=== PATIENT | female | born 1950 | race Caucasian/White ===

== ENCOUNTER 2023-08-19 05:29 | Emergency (ER) | payer MEDICARE, OTHER, SELFPAY ==
[2023-08-19 05:34] VITALS: BP 177/87; PULSE 110; RESP 18; TEMP 37.1; O2SAT 98; BMI 26.5
--- NOTE | 2023-08-19 05:44 | ED_ITS ---
HPI - General Adult General Chief complaint: Abdominal Pain Stated complaint: FLANK PAIN Time Seen by Provider: 08/19/23 05:32 Source: patient Mode of arrival: walk-in Limitations: no limitations History of Present Illness HPI narrative: 73-year-old female presents for a four to five-day history of intermittent pain in her right lower abdomen which goes into her back on the right side. No trauma. No dysuria or hematuria. She has a history of kidney stones. The pain had started in the abdomen rather that her back. It doesn't seem to radiate to her legs at all. Related Data Home Medications Medication Instructions Recorded Confirmed No Known Home Medications 08/19/23 08/19/23 Allergies Allergy/AdvReac Type Severity Reaction Status Date / Time No Known Drug Allergies Allergy Verified 08/19/23 05:42 Review of Systems ROS Narrative A ten point review of systems is negative except as noted above. Exam Narrative Exam Narrative: Nurses note and vital signs reviewed and patient is not hypoxic. General: The patient appears well and in no apparent distress. Patient is resting comfortably on cart. Skin: Warm, dry, no pallor noted. There is no rash noted. Head: Normocephalic, atraumatic Eye: Normal conjunctiva, no drainage Ears, Nose, Mouth, and Throat: oral mucosa is moist. Nares patent. Cardiovascular: Regular Rate and Rhythm Respiratory: Patient is in no distress, no accessory muscle use, lungs are clear to auscultation, no wheezing, rales or rhonchi Back: non-tender, no CVA tenderness bilaterally to percussion. no bruise or rash GI: nontender, nondistended. No tenderness in the right lower quadrant. Musculoskeletal: The patient has no evidence of calf tenderness, no pitting edema, symmetrical pulses noted bilaterally Neurological: A&O, normal speech Psychiatric: Cooperative Constitutional Vital Signs, click to edit/add: Last Vital Signs Temp 98.7 F 08/19/23 05:34 Pulse 110 H 08/19/23 05:34 Resp 18 08/19/23 05:34 BP 177/87 H 08/19/23 05:34 Pulse Ox 98 08/19/23 05:34 O2 Del Method Room Air 08/19/23 05:34 Course Vital Signs Vital signs: Vital Signs Temperature 98.7 F 08/19/23 05:34 Pulse Rate 110 H 08/19/23 05:34 Respiratory Rate 18 08/19/23 05:34 Blood Pressure 177/87 H 08/19/23 05:34 Pulse Oximetry 98 08/19/23 05:34 Oxygen Delivery Method Room Air 08/19/23 05:34 Temperature 98.7 F 08/19/23 05:34 Pulse Rate 110 H 08/19/23 05:34 Respiratory Rate 18 08/19/23 05:34 Blood Pressure 177/87 H 08/19/23 05:34 Pulse Oximetry 98 08/19/23 05:34 Oxygen Delivery Method Room Air 08/19/23 05:34 Medical Decision Making MDM Narrative Medical decision making narrative: Urinalysis is negative as is the blood work. CT scan is pending. Differential Diagnosis Differential Diagnosis: kidney stone, urinary tract infection, appendicitis, constipation Lab Data Lab results reviewed: Yes I reviewed the patient's lab results Labs: Lab Results 08/19/23 08/19/23 Range/Units 05:35 05:45 WBC 9.4 (4.0-11.0) 10^3/uL RBC 4.51 (4.20-5.40) 10^6/uL Hgb 13.8 (12.0-16.0) g/dL Hct 40.4 (36.0-48.0) % MCV 89.6 (81.0-99.0) fL MCH 30.6 (26.7-34.0) pg MCHC 34.2 (29.9-35.2) g/dL RDW 12.2 (11.0-15.0) % Plt Count 267 (150-450) 10^3/uL MPV 9.6 (9.5-13.5) fL Neut % (Auto) 73.3 (43.0-75.0) % Lymph % (Auto) 17.4 L (20.5-60.0) % [place] % (Auto) 7.5 (1.7-12.0) % Eos % (Auto) 1.0 (0.9-7.0) % Baso % (Auto) 0.3 (0.2-2.0) % Neut # (Auto) 6.9 H (1.4-6.5) 10^3/uL Lymph # (Auto) 1.6 (1.2-3.8) 10^3/uL [place] # (Auto) 0.7 (0.3-0.8) 10^3/uL Eos # (Auto) 0.1 (0.0-0.7) 10^3/uL Baso # (Auto) 0.0 (0.0-0.1) 10^3/uL Abs Immat Gran (auto) 0.05 H (0.00-0.03) 10^3/uL Imm/Tot Granulo (auto) 0.5 (0.0-0.5) % Sodium 141 (136-145) mmol/L Potassium 3.8 (3.5-5.1) mmol/L Chloride 101 (98-107) mmol/L Carbon Dioxide 27.9 (21.0-32.0) mmol/L Anion Gap 15.9 BUN 11.0 (7.0-18.0) mg/dL Creatinine 0.88 (0.55-1.02) mg/dL Est GFR ( Amer) >60 (>=60) Est GFR (Non-Af Amer) >60 (>=60) BUN/Creatinine Ratio 12.5 Glucose 105 (74-106) mg/dL Calcium 8.7 (8.5-10.1) mg/dL Urine Color Yellow (YELLOW) Urine Clarity Clear (CLEAR) Urine pH 6.5 (5.0-9.0) Ur Specific [place] 1.010 (1.005-1.025) Urine Protein Trace (NEG/TRACE) mg/dL Urine Glucose (UA) Negative (NEGATIVE) mg/dL Urine Ketones Negative (NEGATIVE) mg/dL Urine Occult Blood Negative (NEGATIVE) Urine Nitrite Negative (NEGATIVE) Urine Bilirubin Negative (NEGATIVE) Urine Urobilinogen 0.2 (0.2-1.0) EU/dL Ur Leukocyte Esterase Negative (NEGATIVE) Urine RBC None seen (0-2) #/HPF Urine WBC None seen (NONE SEEN) #/HPF Ur Squamous Epith Cells None seen (NONE/RARE) #/LPF Urine Crystals None seen (None Seen) #/HPF Urine Bacteria None seen (NONE SEEN) #/HPF Urine Casts None seen (NONE SEEN) #/LPF Urine Mucus None seen (NONE SEEN) Discharge Plan Discharge Patient Disposition: Still a Patient
--- NOTE | 2023-08-19 05:48 | PC.NURSE ---
Pt presents to ER for lower right abdominal pain that occassionally radiates through to her back Pt states she has had kidney stones in the past but the pain was located in her back at that time No tenderness on palpation Pt denies pain with urination or urgency/burning
[2023-08-19 05:56] LABS: Bilirubin Urine NEGATIVE (NEGATIVE); Blood Urine NEGATIVE (NEGATIVE); Clarity Urine CLEAR (CLEAR); Color Urine YELLOW (YELLOW); Glucose Urine UA NEGATIVE (NEGATIVE); Ketones Urine NEGATIVE (NEGATIVE); Leukocyte Esterase Urine NEGATIVE (NEGATIVE); Nitrite Urine NEGATIVE (NEGATIVE); Protein Urine TRACE mg/dL (NEG/TRACE); Urobilinogen Urine 0.2 EU/dL (0.2-1.0); pH Urine 6.5 (5.0-9.0)
[2023-08-19 05:56] LABS: Basophils Percent Auto 0.3 % (0.2-2.0); Eosinophils Absolute Auto 0.1 10^3/uL (0.0-0.7); Hematocrit 40.4 % (36.0-48.0); Hemoglobin 13.8 g/dL (12.0-16.0); Immature Granulocytes Abs Auto 0.05 10^3/uL (0.00-0.03); Immature Granulocytes Pct Auto 0.5 % (0.0-0.5); Lymphocytes Absolute Auto 1.6 10^3/uL (1.2-3.8); Lymphocytes Percent Auto 17.4 % (20.5-60.0); Mean Corpuscular HGB Conc 34.2 g/dL (29.9-35.2); Mean Corpuscular Hemoglobin 30.6 pg (26.7-34.0); Mean Corpuscular Volume 89.6 fL (81.0-99.0); Mean Platelet Volume 9.6 fL (9.5-13.5); Monocytes Absolute Auto 0.7 10^3/uL (0.3-0.8); Monocytes Percent Auto 7.5 % (1.7-12.0); Neutrophils Absolute Auto 6.9 10^3/uL (1.4-6.5); Neutrophils Percent Auto 73.3 % (43.0-75.0); Platelet Count 267 10^3/uL (150-450); Red Blood Count 4.51 10^6/uL (4.20-5.40); Red Cell Distribution Width 12.2 % (11.0-15.0); White Blood Count 9.4 10^3/uL (4.0-11.0)
[2023-08-19 06:04] LABS: Anion Gap 15.9; BUN Creatinine Ratio 12.5; Calcium 8.7 mg/dL (8.5-10.1); Carbon Dioxide 27.9 mmol/L (21.0-32.0); Chloride 101 mmol/L (98-107); Estimated GFR (African America >60 (>=60); Estimated GFR (Non-African Ame >60 (>=60); Glucose 105 mg/dL (74-106); Potassium 3.8 mmol/L (3.5-5.1); Sodium 141 mmol/L (136-145)
--- NOTE | 2023-08-19 06:08 | CT_ITS ---
The [address] [address] Patient Name: YURI RUEDA MRN: [id number] date: 1950 Sex: F Assigned Patient Location: ER Current Patient Location: ED.MAIN Accession/Order Number: [id number] Exam Date: 08/19/2023 06:18 Report Date: 08/19/2023 08:02 At the request of: MIRNA HARTLEY Procedure: CT abdomen pelvis wo con CLINICAL HISTORY: right-sided pain, rule out stone. Right-sided flank pain, pain for the past few days. EXAMINATION: Unenhanced CT scan of the abdomen and pelvis: 08/19/2023. COMPARISON: None. TECHNIQUE: 3 mm axial images from lung bases through ischial tuberosities without intravenous or oral contrast were obtained. Sagittal, coronal reconstructions were also performed. FINDINGS: The visualized lung bases, cardiac, posterior mediastinal structures seem normal. CT ABDOMEN: There are multiple calcified granulomas within the liver as well as spleen without discrete lesions. Gallbladder, pancreas, adrenal glands appear normal. There is no hydronephrosis, perinephric fat stranding, nephrolithiasis, or ureterolithiasis on the left. The right kidney demonstrates there are several calculi one of these calculus in the midpole, measures approximately 6 mm in size. There is no hydronephrosis, or perinephric fat stranding. There is some scarring of the right kidney probably sequela of old inflammatory process. There is no ureterolithiasis. The abdominal aorta is mildly atherosclerotic. There is no retroperitoneal or mesenteric adenopathy. The small bowel loops are of normal caliber. Appendix is not seen. Most of the colon is normal with scattered diverticula however there is a inflamed diverticulum of the sigmoid colon which is located to the right aspect of the upper pelvis with thickening of the underlying colon without perforation or abscess formation. CT PELVIS: The bladder seems normal. The uterus, ovaries for patient's age are normal with probably calcified fibroid in the lower aspect of the uterus. There is no pelvic adenopathy. There are no focal fluid collections. The visualized osseous structures demonstrate no gross abnormalities. CT/CT abdomen pelvis wo con IMPRESSION: 1. There are some nonobstructing calculi in the right kidney. There is no nephrolithiasis involving the left kidney. There is no obstructive uropathy either on the right or the left side. 2. Acute diverticulitis of the sigmoid colon which is located to the right aspect of the mid pelvis with induration of surrounding fat, thickening of the underlying colon but no perforation or abscess formation. This could account for patient's right-sided pain. There is diverticular disease elsewhere in the colon. Electronically authenticated by: SANDRA CUEVAS Date: 08/19/2023 08:02
[2023-08-19 06:10] LABS: Bacteria Urine NONE SEEN #/HPF (NONE SEEN); Cast Seen? NONE SEEN #/LPF (NONE SEEN); Crystals Seen? None Seen #/HPF (None Seen); Mucus Urine NONE SEEN (NONE SEEN); RBC Urine NONE SEEN #/HPF (0-2); Squamous Epithelial Cell Urine NONE SEEN #/LPF (NONE/RARE); WBC Urine NONE SEEN #/HPF (NONE SEEN)
[2023-08-19] MEDS: CIPROFLOXACIN HCL 500 MG TABLET PO (07:57)
[2023-08-19] MEDS: METRONIDAZOLE 250 MG TABLET 500 MG PO (07:57)
== END 2023-08-19 08:05 | disposition home or self-care (01) ==
PROVIDERS: Emergency Medicine; Emergency Provider Emergency Medicine; Family Provider Optometrist; PCP Internal Medicine
DX: K57.32 Diverticulitis of large intestine without perforation or abscess without bleeding (principal)
CPT/HCPCS: 36415; 74176; 80048; 81001; 85025; 99284

== ENCOUNTER 2025-08-09 05:53 | Emergency (ER) | payer MEDICARE, OTHER, SELFPAY ==
[2025-08-09 05:56] VITALS: BP 173/92; PULSE 88; TEMP 37.1; O2SAT 97; BMI 28.3
--- NOTE | 2025-08-09 06:16 | CT_ITS ---
The [address] [address] Patient Name: YURI RUEDA MRN: [id number] date: 1950 Sex: F Assigned Patient Location: ER Current Patient Location: ED.MAIN Accession/Order Number: [id number] Exam Date: 08/09/2025 06:40 Report Date: 08/09/2025 07:51 At the request of: JULISA REVELES MD Procedure: CT abdomen pelvis w con CT ABDOMEN AND PELVIS WITH CONTRAST CLINICAL DATA: Acute lower abdominal pain. History of diverticular disease. COMPARISON: 08/19/2023 Spiral images were obtained through the abdomen and pelvis following 100 mL of Omnipaque 300. This CT exam was performed using one or more following dose reduction techniques: Automated exposure control, adjustment of the mA and/or kV according to patient size, or use of iterative reconstruction technique. Limited cuts through the lung bases show no contributory findings. Calcified hepatic and splenic granulomas are seen. A tiny cyst is again visualized at the hepatic dome near the IVC. There is continued minor focal thickening of the wall at the gallbladder fundus. The pancreas and adrenal glands show no acute findings. The renal nephrograms are symmetric. There is cortical scarring at the superior pole of the right kidney where there is also a stone measuring 6 mm in size. There are parapelvic renal cysts. No hydronephrosis or hydroureter is noted. Minor plaque is present at a normal caliber aorta. A few tiny lymph nodes are seen. There is no ascites. No dilated small bowel loops are identified. Mild stool is visualized along the colon. There is subtle thoracolumbar levoscoliotic curvature and similar mild degenerative changes at the spine. Images through the pelvis show normal caliber small bowel. No appendiceal inflammation is seen. There is mild distal colonic stool. Distal descending and sigmoid diverticula are visualized. There is a site of minimal pericolonic stranding in the sigmoid region, best seen on coronal image 38. This may be minor active inflammation though it may also be sequela of diverticulitis visualized on the comparison. There is no free or loculated pelvic fluid. There is uterine calcification compatible with fibroid disease. No urinary bladder abnormalities are identified. CT/CT abdomen pelvis w con IMPRESSION: GRANULOMATOUS CHANGES. RIGHT NEPHROLITHIASIS AND BILATERAL PARAPELVIC RENAL CYSTS. NO BOWEL OR URINARY TRACT OBSTRUCTION. DIVERTICULAR DISEASE WITH QUESTION OF MINIMAL ACTIVE INFLAMMATION VERSUS SEQUELA OF PREVIOUS DIVERTICULITIS. CORRELATION IS SUGGESTED. FIBROID UTERUS. Impression dictated by: Marybel Bond M.D. 08/09/2025 7:51 AM Dictation Location: [place] [address] Electronically authenticated by: [id number] Y Date: 08/09/2025 07:51
--- NOTE | 2025-08-09 06:17 | ED.ABDPAIN1 ---
HPI - Abdominal Pain General Chief Complaint: Abdominal Pain Stated Complaint: ABDOMINAL PAIN Time Seen by Provider: 08/09/25 05:55 Source: patient Mode of arrival: walk-in Limitations: no limitations History of Present Illness HPI narrative: This 75-year-old female with a history of diverticulitis presents for evaluation of lower abdominal pain that started last night. The pain is over her bladder and lower abdomen. She is not having any flank pain. She denies any nausea or vomiting. She is not having any fevers or chills. She feels like she may be urinating more than usual for the past several days but is not having any hematuria or dysuria. She does not have any chest pain or shortness of breath. She has not had any change in her stools. She is taking a daily dose of Metamucil to keep herself from becoming constipated. Related Data Home Medications ?Medication ?Instructions ?Recorded ?Confirmed No Known Home Medications 08/09/25 08/09/25 Allergies Allergy/AdvReac Type Severity Reaction Status Date / Time No Known Drug Allergies Allergy Verified 08/09/25 06:00 Review of Systems ROS Status of ROS 10 or more systems reviewed and unremarkable except as noted in history and below PFSH PFSH Social History Little interest or pleasure in doing things: not at all Feeling down, depressed, or hopeless: not at all Exam Narrative Exam Narrative: Vital signs and Nursing Notes reviewed: Patient is afebrile with normal pulse, blood pressure is elevated at 173/92, she is not hypoxic with pulse ox of 97% on room air General: Well-appearing female, she is awake, alert, oriented, no acute distress, lying comfortably on the stretcher HEENT: Normocephalic atraumatic, mucous membranes are moist and pink, eyes are clear, normal conjunctiva, vision is grossly intact Chest: Lungs are clear to auscultation with good air entry, there is no wheezing rhonchi or rales appreciated no accessory muscle use, patient is speaking in complete sentences-no chest wall tenderness to palpation CVS: Regular rate and rhythm S1-S2, no murmurs rubs or gallops, pulses are brisk and equal bilaterally ABD: Soft, nondistended, mild tenderness over the urinary bladder, there is no McBurney's point tenderness, right upper quadrant tenderness, epigastric left upper quadrant or left lower quadrant tenderness to deep palpation, bowel sounds are normal, no abdominal bruits appreciated Extremities: Moving all extremities, no lower extremity tenderness or swelling noted, negative Homans' sign, pulses are brisk and equal bilaterally Skin: Normal in appearance without rash,pallor, petechiae or purpura Neuro: No focal deficits Constitutional Vital Signs, click to edit/add: Last Vital Signs Temp 98.8 F 08/09/25 05:56 Pulse 88 08/09/25 05:56 Resp 18 08/09/25 05:56 BP 173/92 H 08/09/25 05:56 Pulse Ox 97 08/09/25 05:56 O2 Del Method Room Air 08/09/25 05:56 Course Vital Signs Vital signs: Vital Signs Temperature 98.8 F 08/09/25 05:56 Pulse Rate 88 08/09/25 05:56 Respiratory Rate 18 08/09/25 05:56 Blood Pressure 173/92 H 08/09/25 05:56 Pulse Oximetry 97 08/09/25 05:56 Oxygen Delivery Method Room Air 08/09/25 05:56 Temperature 98.8 F 08/09/25 05:56 Pulse Rate 88 08/09/25 05:56 Respiratory Rate 18 08/09/25 05:56 Blood Pressure 173/92 H 08/09/25 05:56 Pulse Oximetry 97 08/09/25 05:56 Oxygen Delivery Method Room Air 08/09/25 05:56 MDM - Abdominal Pain MDM Narrative Medical decision making narrative: This 75-year-old female with a history of diverticulitis presents for evaluation of lower abdominal pain starting last night. She does not have any additional symptoms including fevers, chills, change in her stool, diarrhea or constipation. She does state that she has been urinating more frequently recently but does not have any dysuria or hematuria. She is not having any flank pain. She had taken Tylenol in the night and declined the need for anything for pain. An IV was established and she was given IV fluids. CBC with differential, comprehensive metabolic profile, urinalysis and CT scan of the abdomen pelvis with IV contrast was ordered to evaluate for UTI/diverticulitis or other abdominal pathology. She does not have any tenderness in the right lower quadrant or right upper quadrant. She has a normal white count and stable hemoglobin. Comprehensive metabolic profile is normal and urine is negative for infection. CT scan of the abdomen pelvis was ordered and is pending at the time of the end of my shift. She will be signed out to the incoming physician at 7 AM Lab Data Labs: Lab Results 08/09/25 08/09/25 Range/Units 06:04 06:05 WBC 7.0 (4.0-11.0) 10^3/uL RBC 4.76 (4.20-5.40) 10^6/uL Hgb 14.5 (12.0-16.0) g/dL Hct 42.6 (36.0-48.0) % MCV 89.5 (81.0-99.0) fL MCH 30.5 (26.7-34.0) pg MCHC 34.0 (29.9-35.2) g/dL RDW 12.5 (11.0-15.0) % Plt Count 249 (150-450) 10^3/uL MPV 9.7 (9.5-13.5) fL Neut % (Auto) 61.2 (43.0-75.0) % Lymph % (Auto) 29.6 (20.5-60.0) % [place] % (Auto) 7.7 (1.7-12.0) % Eos % (Auto) 1.1 (0.9-7.0) % Baso % (Auto) 0.3 (0.2-2.0) % Neut # (Auto) 4.3 (1.4-6.5) 10^3/uL Lymph # (Auto) 2.1 (1.2-3.8) 10^3/uL [place] # (Auto) 0.5 (0.3-0.8) 10^3/uL Eos # (Auto) 0.1 (0.0-0.7) 10^3/uL Baso # (Auto) 0.0 (0.0-0.1) 10^3/uL Abs Immat Gran (auto) 0.01 (0.00-0.03) 10^3/uL Imm/Tot Granulo (auto) 0.1 (0.0-0.5) % Sodium 140 (136-145) mmol/L Potassium 3.9 (3.5-5.1) mmol/L Chloride 104 (98-107) mmol/L Carbon Dioxide 29.1 (21.0-32.0) mmol/L Anion Gap 10.8 BUN 14.0 (7.0-18.0) mg/dL Creatinine 0.79 (0.55-1.02) mg/dL Est GFR ( Amer) >60 (>=60 mL/min/1.73m^2) Est GFR (Non-Af Amer) >60 (>=60 mL/min/1.73m^2) BUN/Creatinine Ratio 17.7 Glucose 105 (74-106) mg/dL Calcium 9.3 (8.5-10.1) mg/dL Total Bilirubin 0.6 (0.2-1.0) mg/dL AST 21 (15-37) U/L ALT 25 (14-59) U/L Alkaline Phosphatase 81 (46-116) U/L Total Protein 7.1 (6.4-8.2) g/dL Albumin 3.9 (3.4-5.0) g/dL Globulin 3.2 g/dL Albumin/Globulin Ratio 1.2 Urine Color Lt. yellow (YELLOW) Urine Clarity Clear (CLEAR) Urine pH 6.0 (5.0-9.0) Ur Specific [place] <=1.005 A (1.005-1.025) Urine Protein Negative (NEG/TRACE) mg/dL Urine Glucose (UA) Negative (NEGATIVE) mg/dL Urine Ketones Negative (NEGATIVE) mg/dL Urine Occult Blood Negative (NEGATIVE) Urine Nitrite Negative (NEGATIVE) Urine Bilirubin Negative (NEGATIVE) Urine Urobilinogen 0.2 (0.2-1.0) EU/dL Ur Leukocyte Esterase Negative (NEGATIVE) Urine RBC 0-2 (0-2) #/HPF Urine WBC 0-2 A (NONE SEEN) #/HPF Ur Squamous Epith Cells Rare (NONE/RARE) #/LPF Urine Crystals None seen (None Seen) #/HPF Urine Bacteria None seen (NONE SEEN) #/HPF Urine Casts None seen (NONE SEEN) #/LPF Urine Mucus None seen (NONE SEEN) Ur Culture Indicated? No Discharge Plan Discharge Patient Disposition: Still a Patient
[2025-08-09 06:23] LABS: Hematocrit 42.6 % (36.0-48.0); Hemoglobin 14.5 g/dL (12.0-16.0); Immature Granulocytes Abs Auto 0.01 10^3/uL (0.00-0.03); Immature Granulocytes Pct Auto 0.1 % (0.0-0.5); Lymphocytes Absolute Auto 2.1 10^3/uL (1.2-3.8); Mean Corpuscular HGB Conc 34.0 g/dL (29.9-35.2); Mean Corpuscular Hemoglobin 30.5 pg (26.7-34.0); Mean Corpuscular Volume 89.5 fL (81.0-99.0); Platelet Count 249 10^3/uL (150-450); Red Blood Count 4.76 10^6/uL (4.20-5.40); White Blood Count 7.0 10^3/uL (4.0-11.0)
[2025-08-09 06:25] LABS: Glucose Urine UA NEGATIVE (NEGATIVE)
[2025-08-09 06:32] LABS: Alanine Aminotransferase 25 U/L (14-59); Albumin Globulin Ratio 1.2; Albumin Level 3.9 g/dL (3.4-5.0); Alkaline Phosphatase 81 U/L (46-116); Anion Gap 10.8; Aspartate Amino Transferase 21 U/L (15-37); Blood Urea Nitrogen 14.0 mg/dL (7.0-18.0); Calcium 9.3 mg/dL (8.5-10.1); Carbon Dioxide 29.1 mmol/L (21.0-32.0); Chloride 104 mmol/L (98-107); Estimated GFR (African America >60 (>=60 mL/min/1.73m^2); Estimated GFR (Non-African Ame >60 (>=60 mL/min/1.73m^2); Globulin 3.2 g/dL; Glucose 105 mg/dL (74-106); Potassium 3.9 mmol/L (3.5-5.1); Sodium 140 mmol/L (136-145); Total Protein 7.1 g/dL (6.4-8.2)
[2025-08-09 06:35] LABS: Cast Seen? NONE SEEN #/LPF (NONE SEEN); Crystals Seen? None Seen #/HPF (None Seen); Urine Culture Indicated NO
[2025-08-09] MEDS: 0.9 % SODIUM CHLORIDE 1,000 ML 1000 ML IV (06:39)
--- OUTSIDE RECORDS SUMMARY | 2025-08-09 07:19 | XMS_ITS | CCD ---
Author Organization [facility] Care Team Providers Care Bar Porter Name Role Phone NIKUNJ, DR HUGGINS Primary Care Unavailable REQUEST, DR MAYA LISTED Admitting Unavaila ble REQUEST, DR MAYA LISTED Consulting Unavaila ble REQUEST, DR MAYA LISTED Attending Unavaila ble BALL, DR HUGGINS Primary Care Unavailable BALL, DR HUGGINS Consulting Unavailable BALL, DR HUGGINS Attending Unavailable BALL, DR HUGGINS Admitting Unavailable WEST, DR GLORIA Durham Consulting Unavailable ZIEBER, DR BRADLY Kraus Consulting Unavailable BALL, DR HUGGINS Consulting Unavailable BALL, DR HUGGINS Attending Unavailable BALL, DR HUGGINS Admitting Unavailable BALL, DR HUGGINS Primary Care Unavailable ZIEBANNA, DR BRADLY Kraus Consulting Unavailable BUSTAMANTE, DR TABITHA Rowe Consulting Unavailabl e BALL, DR HUGGINS Primary Care Unavailable HAY, DR CHAMBERS Admitting Unavailable HAY, DR CHAMBERS Attending Unavailable ZIEBER, DR BRADLY Kraus Consulting Unavailable HAY, DR CHAMBERS Consulting Unavailable Krishna Calvin Unavailable DO Krishna Calvin Primary Care Provider MD Lauren Imtahira Attending Provider Krishna Calvin Primary Care Unavailable Lauren, Imtahira Attending Unavailable Asatahira, Imad Admitting Unavailable Krishna Calvin DO Primary Care Provider Krishna Calvin DO Attending Provider [phone] Medications Current Medications MedicationDrug Class(es)DatesSig (Normalized)Sig (Original)glucosamine sulfate 500 mg oral tablet (2 sources)Start: 19-12-2132xxhu 1 tablet by mouth once dailyGlucosamine Sulfate (Cidatrine (Glucosamine)) 500 mg tablet Active 500 MG PO Daily April 03, 2024 12 :00am administer with a meal Complies with drug therapyMultivitamin (Daily Multi-Vitamin) tablet (2 sources)Start: 44-90-1807banv 1 tablet by mouth once dailyMultivitamin (Daily Multi-Vitamin) tablet Active 1 TAB PO Daily April 03, 2024 12:00am Complies with drug therapyStart: 97-65-8018sire 1 tablet by mouth once dailyMultivitamin (Daily Multi-Vitamin) tablet Active 1 TAB PO Daily April 03, 2024 12:00amOmega 2-Cji-Njh-Fish Oil (Fish Oil) 1,000 mg (120 mg-180 mg) capsule (2 sources)Start: 06-37-4421hfns 1 capsule by mouth once dailyOmega 0-Aot-Zcy-Fish Oil (Fish Oil) 1,000 mg (120 mg-180 mg) capsule Active 1 CAP PO Daily April 03, 2024 12:00am Complies with drug therapyStart: 69-43-8888talg 1 capsule by mouth once dailyOmega 5-Vdl-Deo-Fish Oil (Fish Oil) 1,000 mg (120 mg- 180 mg) capsule Active 1 CAP PO Daily April 03, 2024 12:00am Problems Active Problems Problem ClassificationProblemDateDocumented DateEpisodic/ChronicAbdominal pain (1 source)Left upper quadrant pain; Translations: [Left upper quadrant pain] EpisodicCalculus of urinary tract (8 sources)Calculus of ureter; Translations: [Ureteric stone]Onset: 01-08-2022 EpisodicConditions associated with dizziness or vertigo (4 sources)Dizziness and giddiness; Translations: [DIZZINESS AND GIDDINESS] Onset: 04-03-3891JwyqjgeiVqjbddaoi of lipid metabolism (3 sources)Pure hypercholesterolemia; Translations: [Pure hypercholesterolemia, unspecified]73-09-1486AlxdidqUmnmflitnmneny and diverticulitis (2 sources)Diverticulitis of intestine; Translations: [Diverticulitis of intestine, part unspecified, without perforation or abscess without bleeding] ChronicOther bone disease and musculoskeletal deformities (1 source)Osteopenia; Translations: [Other specified disorders of bone density and structure, unspecified site]EpisodicOther bone disease and musculoskeletal deformities (2 sources)Osteopenia; Translations: [Other specified disorders of bone density and structure, unspecified site]54-50-6666OymupppbQaypj circulatory disease (1 source)Elevated blood-pressure reading, without diagnosis of hypertension EpisodicOther nutritional; endocrine; and metabolic disorders (1 source)OverweightEpisodicOther screening for suspected conditions (not mental disorders or infectious disease) (5 sources)Encounter for screening mammogram for malignant neoplasm of breast; Translations: [Encounter for screening for malignant neoplasm of colon]Onset: 87-04-1855YkykqkraYhvsrfry codes; unclassified (1 source)Menopause present; Translations: [Asymptomatic menopausal state] 68-09-7055JcbermoxRraklhzz codes; unclassified (1 source)Mammogram declined; Translations: [Procedure and treatment not carried out because of patient's decision for unspecified reasons]07-20-0222Wdxipvfb Retinal detachments; defects; vascular occlusion; and retinopathy (5 sources)Retinal ischemia; Translations: [Retinal ischemia]Onset: 07-06-2022 Chronic Past or Other Problems Problem ClassificationProblemDateDocumented DateEpisodic/ChronicResidual codes; unclassified (1 source)Family history of malignant neoplasm of other organs or systems; Translations: [FAM HX MALIG NEOPLASM OTH ORGN/SYS]Onset: 94-22-4965Lqgyphhm Results Test NameValueInterpretationReference RangeFacilityUS CAROTID ART BILon [id number] CAROTID ART BILEXAMINATION: US CAROTID ART MEME HISTORY: Retinal ischemia COMPARISON: No relevant comparison available. TECHNIQUE: Duplex Doppler ultrasound analysis of carotid and vertebral arteries. . Bilateral carotid arterial duplex examination was performed using B-mode, color flow and spectral analysis. Carotid stenosis is reported according to validated velocity parameters, similar to NASCET criteria. FINDINGS: RIGHT CAROTID ARTERY: No visible stenosis or significant plaque. RIGHT VERTEBRAL: Antegrade flow. Subclavian: PSV: 143.1 cm/s EDV: 5.1 cm/s CCA: Prox: PSV: 93.1 cm/s EDV: 18.7 cm/s Mid: PSV: 80.1 cm/s EDV: 17.1 cm/s Distal: PSV: 85.0 cm/s EDV: 22.0 cm/s BULB: PSV: 81.7 cm/s EDV: 23.6 cm/s ICA: Prox: PSV: 81.7 cm/s EDV: 28.4 cm/s Mid: PSV: 74.2 cm/s EDV: 19.2 cm/s Distal: PSV: 127.9 cm/s EDV: 37.2 cm/s ECA: PSV: 69.1 cm/s EDV: 9.8 cm/s VERTEBRAL: PSV: 47.2 cm/s EDV: 6.5 cm/s ICA/CCA ratio: PSV: 1.5 EDV: 1.7 LEFT CAROTID ARTERY: No visible stenosis or significant plaque. LEFT VERTEBRAL: Antegrade flow. Subclavian: PSV: 121.4 cm/s EDV: 6.7 cm/s CCA: Prox: PSV: 103.7 cm/s EDV: 15.0 cm/s Mid: PSV: 93.8 cm/s EDV: 22.9 cm/s Distal: PSV: 87.9 cm/s EDV: 24.8 cm/s BULB: PSV: 78.0 cm/s EDV: 20.9 cm/s ICA: Prox: PSV: 70.7 cm/s EDV: 24.1 cm/s Mid: PSV: 94.0 cm/s EDV: 31.8 cm/s Distal: PSV: 97.9 cm/s EDV: 38.1 cm/s ECA: PSV: 86.6 cm/s EDV: 17.1 cm/s VERTEBRAL: PSV: 65.5 cm/s EDV: 20.2 cm/s ICA/CCA ratio: PSV: 1.1 EDV: 1.5 IMPRESSION: 1. 0-49% flow stenosis within the right and left carotid arteries. 2. No significant atherosclerotic plaque. Electronically authenticated by: BRADLY CHRISTOPHER Date: 2022-07-06 16:04[facility] HospitalCBC AUTO DIFFon [id number] #0.0 103/ulNormal0.0-0.1The [facility] - WestComment on above:Performed By: #### CBC #### [facility] [address] [address] [address] Virgie Torresphils/100 WBC (Bld)0.5 %Normal0.2-2.0The [facility] Comment on above:Performed By: #### CBC #### [facility] [address] [address] [address] Virgie Howell #0.1 103/ulNormal0.0-0.7The [facility] - WestComment on above: Performed By: #### CBC #### [facility] [address] [place] [address] Dr. Virgie Francoisosinophils/100 WBC (Bld)1.6 %Normal0.9-7.0The [facility] Comment on above:Performed By: #### CBC #### [facility] [address] [place] [address] Dr. Virgie Francoisrythrocyte distribution width (RBC) [Ratio]13.0 %Zyunjb28.0-15.0 The [facility] - WestComment on above:Performed By: #### CBC #### [facility] [address] [place] [address] Dr. Virgie DeutschHematocrit (Bld) [Volume fraction]42.0 %Uhzdvu15.0-48.0The [facility] - WestComment on above:Performed By: #### CBC #### [facility] [address] [place] [address] Dr. Virgie DeutschHemoglobin (Bld) [Mass/Vol]13.9 g/oKGsdujw73.0-16.0The [facility] WestComment on above:Performed By: #### CBC #### [facility] [address] [place] [address] Dr. Virgie Espinosa #0.01 10e3/ulNormal0.00-0.03The [facility] - WestComment on above:Performed By: #### CBC #### [facility] [address] [place] [address] Dr. Virgie Espinosa %0.2 %Normal0.0-0.5The [facility] - WestComment on above: Performed By: #### CBC #### [facility] [address] [place] [address] Dr. Virgie Arzola #1.4 103/ulNormal1.2-3.8The [facility] - WestComment on above:Performed By: #### CBC #### [facility] [address] [place] [address] Dr. Yilan ChangLymphocytes/100 WBC (Bld)31.2 %Bqlluu78.5-60.0The [facility] - WestComment on above:Performed By: #### CBC #### [facility] [address] [place] [address] Dr. Virgie WoodUAL DIFF REQNONormalThe [facility] - WestComment on above: Performed By: #### CBC #### [facility] [address] [place] [address] Dr. Virgie Gao (RBC) [Entitic mass]29.9 sfTmihyi61.7-34.0The [facility] - WestComment on above:Performed By: #### CBC #### [facility] [address] [place] [address] Dr. Virgie Gao (RBC) [Mass/Vol]33.1 g/gVNzcssk21.9-35.2The [facility] - WestComment on above:Performed By: #### CBC #### [facility] [address] [place] [address] Dr. Virgie Powell (RBC) [Entitic vol]90.3 lCWbsduz22.0-99.0The [facility] WestComment on above:Performed By: #### CBC #### [facility] [address] [place] [address] Dr. Virgie Roldan #0.3 103/ulNormal0.3-0.8The [facility] - WestComment on above:Performed By: #### CBC #### [facility] [address] [place] [address] Dr. Virgie Murilloocytes/100 WBC (Bld)7.0 %Normal1.7-12.0The [facility] Comment on above:Performed By: #### CBC #### [facility] [address] [place] [address] Dr. Virgie Velasco #2.6 103/ulNormal1.4-6.5The [facility] - WestComment on above:Performed By: #### CBC #### [facility] [address] [place] [address] Dr. Virgie Normanutrophils/100 WBC (Bld)59.5 %Hwrvxy83.0-75.0The [facility] - WestComment on above:Performed By: #### CBC #### [facility] [address] [address] [address] Virgie DeutschPlatelet mean volume (Bld) [Entitic vol]9.6 fLNormal9.5-13.5The [facility] - WestComment on above:Performed By: #### CBC #### [facility] [address] [place] [address] Dr. Virgie DeutschPLT247 103/uxVgnuhf860-876Eal [facility] - WestComment on above: Performed By: #### CBC #### [facility] [address] [place] [address] Dr. Virgie DeutschRBC4.65 106/ulNormal4.20-5.40The [facility] - WestComment on above:Performed By: #### CBC #### [facility] [address] [place] [address] Dr. Virgie DeutschWBC4.4 103/ulNormal4.0-11.0The [facility] - WestComment on above: Performed By: #### CBC #### [facility] [address] [place] [address] Dr. Virgie DeutschCT HEAD WO CONon [id number] HEAD WO CONEXAMINATION: CT HEAD WO CON HISTORY: Vertigo COMPARISON: No relevant comparison available. TECHNIQUE: Axial CT images were obtained without IV contrast. Dose reduction techniques were achieved by using automated exposure control and/or adjustment of mA and/or kV according to patient size and/or use of iterative reconstruction technique. FINDINGS: BRAIN: No edema, hemorrhage, mass, acute infarction, or inappropriate atrophy. CSF SPACES: No hydrocephalus, subarachnoid hemorrhage, or mass. Appropriate for age. SKULL: No fracture, mass, or other significant visible lesion. SINUSES: Only the superior most aspect of the right maxillary sinus is included on today's study, but it is completely opacified. Remaining included sinuses are clear. Mastoid air cells are clear. ORBITS: No appreciable abnormality on the limited views. OTHER: Negative IMPRESSION: 1. Normal CT appearance of the brain for patient's age. 2. Right maxillary sinusitis, chronic versus acute; consider CT sinuses for further evaluation. Electronically authenticated by: BRADLY CHRISTOPHER Date: 2022-07-01 07:[address] [place], [place] [address]PROF CHEM 8 (BAS METB)on [id number] gap [Moles/Vol]11.3 mmol/LNormalThe [facility] - WestComment on above:Performed By: #### BMP #### [facility] [address] [address] [address] Virgie DeutschCalcium [Mass/Vol]8.9 mg/dLNormal8.5-10.1The [facility] Comment on above:Performed By: #### BMP #### [facility] [address] [address] [address] Virgie DeutschChloride [Moles/Vol]102 mmol/JZimbua93-988Xsr [facility] Comment on above:Performed By: #### BMP #### [facility] [address] [address] [address] Virgie DeutschCO2 [Moles/Vol]28.8 mmol/XLfemmm57.0-32.0The [facility] Comment on above:Performed By: #### BMP #### [facility] [address] [address] [address] Virgie DeutschCreatinine [Mass/Vol]0.86 mg/dLNormal0.55-1.02The [facility] - WestComment on above:Performed By: #### BMP #### [facility] [address] [place] [address] Dr. Virgie FrancoisGFR-AF ARMENIAN>60Normal>=60The [facility] - WestComment on above:Performed By: #### BMP #### [facility] [address] [address] [address] Virgie FrancoisGFR-NON AF ARMENIAN>60Normal>=60The [facility] WestComment on above:Performed By: #### BMP #### [facility] [address] [address] [address] Virgie DeutschGlucose [Mass/Vol]102 mg/oCFvgqzs70-074Qaf [facility] Comment on above:Performed By: #### BMP #### [facility] [address] [place] [address] Dr. Virgie DeutschPotassium [Moles/Vol]4.1 mmol/LNormal3.5-5.1The [facility] Comment on above:Performed By: #### BMP #### [facility] [address] [place] [address] Dr. Virgie Qiudium [Moles/Vol]138 mmol/ZKtkprj001-395Jwe [facility] Comment on above:Performed By: #### BMP #### [facility] [address] [place] [address] Dr. Virgie DeutschUrea nitrogen [Mass/Vol]19.0 mg/dLCritically high7.0-18.0[facility] HospitalComment on above:Performed By: #### BMP #### [facility] [address] [place] [address] Dr. Virgie Lugo nitrogen/Creatinine [Mass ratio]22.1 mg/mgNormalThCleveland Clinic Euclid HospitalComment on above:Performed By: #### BMP #### [facility] [address] [place] [address] Dr. Virgie Painter AUTO DIFFon [id number] #0.0 103/ulNormal0.0-0.1[facility] HospitalComment on above:Performed By: #### DATCBC #### [facility] [address] [place] [address] Dr. Virgie DeutschBaezekielphils/100 WBC (Bld)0.6 %Normal0.2-2.0The [facility] Comment on above:Performed By: #### DATCBC #### [facility] [address] [place] [address] Dr. Garvin ChangEFiona #0.1 103/ulNormal0.0-0.7The [facility] - WestComment on above: Performed By: #### DATCBC #### [facility] [address] [place] [address] Dr. Virgie Francoisosinophils/100 WBC (Bld)2.0 %Normal0.9-7.0The [facility] Comment on above:Performed By: #### DATCBC #### [facility] [address] [place] [address] Dr. Virgie Francoisrythrocyte distribution width (RBC) [Ratio]12.8 %Gkgeim36.0-15.0 The [facility] WestComment on above:Performed By: #### DATCBC #### [facility] [address] [place] [address] Dr. Virgie DeutschHematocrit (Bld) [Volume fraction]43.6 %Kypdxw67.0-48.0The [facility] WestComment on above:Performed By: #### DATCBC #### [facility] [address] [place] [address] Dr. Virgie DeutschHemoglobin (Bld) [Mass/Vol]14.6 g/cLLpmagr84.0-16.0The [facility] WestComment on above:Performed By: #### DATCBC #### [facility] [address] [place] [address] Dr. Virgie Espinosa #0.01 10e3/ulNormal0.00-0.03The [facility] Medical Centerment on above:Performed By: #### DATCBC #### [facility] [address] [place] [address] Dr. Virgie Espinosa %0.2 %Normal0.0-0.5The [facility] Medical Centerment on above: Performed By: #### DATCBC #### [facility] [address] [place] [address] Dr. Virgie SorensonH #1.8 103/ulNormal1.2-3.8The [facility] - WestComment on above:Performed By: #### DATCBC #### [facility] [address] [place] [address] Dr. Virgie Frymphocytes/100 WBC (Bld)35.6 %Pwilwk96.5-60.0The [facility] - WestComment on above:Performed By: #### DATCBC #### [facility] [address] [place] [address] Dr. Virgie Gao (RBC) [Entitic mass]30.5 jkPtqbkd60.7-34.0The [facility] - WestComment on above:Performed By: #### DATCBC #### [facility] [address] [place] [address] Dr. Virgie Gao (RBC) [Mass/Vol]33.5 g/vHOvuzze67.9-35.2The [facility] WestComment on above:Performed By: #### DATCBC #### [facility] [address] [place] [address] Dr. Virgie Gao (RBC) [Entitic vol]91.0 mPKwfqwe63.0-99.0The [facility] WestComment on above:Performed By: #### DATCBC #### [facility] [address] [place] [address] Dr. Virgie Roldan #0.3 103/ulNormal0.3-0.8The [facility] WestComment on above:Performed By: #### DATCBC #### [facility] [address] [place] [address] Dr. Virgie Murilloocytes/100 WBC (Bld)6.7 %Normal1.7-12.0The [facility] Comment on above:Performed By: #### DATCBC #### [facility] [address] [place] [address] Dr. Virgie Velasco #2.7 103/ulNormal1.4-6.5The [facility] WestComment on above:Performed By: #### DATCBC #### [facility] [address] [place] [address] Dr. Virgie Normanutrophils/100 WBC (Bld)54.9 %Rbhheb61.0-75.0The [facility] - WestComment on above:Performed By: #### DATCBC #### [facility] [address] [place] [address] Dr. Virgie Nunez mean volume (Bld) [Entitic vol]9.6 fLNormal9.5-13.5The [facility] - WestComment on above:Performed By: #### DATCBC #### [facility] [address] [place] [address] Dr. Virgie DeutschPLT251 103/kiXfryqj778-643Frv [facility] - WestComment on above: Performed By: #### DATCBC #### [facility] [address] [place] [address] Dr. Virgie DeutschRBC4.79 106/ulNormal4.20-5.40The [facility] - WestComment on above:Performed By: #### DATCBC #### [facility] [address] [place] [address] Dr. Virgie DeutschWBC5.0 103/ulNormal4.0-11.0The [facility] - WestComment on above: Performed By: #### DATCBC #### [facility] [address] [place] [address] Dr. Virgie Raymond - VITAMIN Don [id number] D 25-OH52.6 ng/mLNormalThe [facility] WestComascension river district hospital on above:Performed By: #### MAURO ARIASBMP #### [facility] [address] [place] [address] Dr. Virgie Leonardo RANGESSEE BELOWWilson Memorial HospitalComment on above: Result Comment: <20 ng/mL Vit D deficient 20 - <30 ng/mL Vit D insufficient 30 - 100 ng/mL Vit D sufficient >100 ng/mL Potential ToxicityPerformed By: #### HUGO DATBMP #### [facility] [address] [place] [address] Dr. Virgie Raymond- BMP WITH LIPIDon [id number] gap [Moles/Vol]12.2 mmol/L NormalThe [facility] WestComascension river district hospital on above:Performed By: #### HUGO DATBMP #### [facility] [address] [place] [address] Dr. Virgie DeutschCalcium [Mass/Vol]8.8 mg/dLNormal8.5-10.1The [facility] Comment on above:Performed By: #### DATVITD, DATBMP #### [facility] [address] [place] [address] Dr. Virgie DeutschChloride [Moles/Vol]105 mmol/COtdsua48-272Ydo [facility] Comment on above:Performed By: #### DATVITD, DATBMP #### [facility] [address] [place] [address] Dr. Virgie DeutschCholesterol [Mass/Vol]253 mg/dLCritically high<=200The [facility] - WestComment on above:Performed By: #### DATVITD, DATBMP #### [facility] [address] [place] [address] Dr. Virgie DeutschCholesterol in HDL [Mass/Vol]81 mg/dLCritically vcst45-40Kdu [facility] WestComment on above:Performed By: #### DATVITD, DATBMP #### [facility] [address] [place] [address] Dr. Virgie Hansonesterol in LDL [Mass/Vol]157.0 mg/dLNormalThe [facility] - WestComment on above:Performed By: #### DATVITD, DATBMP #### [facility] [address] [place] [address] Dr. Virgie DeutschCO2 [Moles/Vol]28.0 mmol/XGukqvs07.0-30.0The [facility] Comment on above:Performed By: #### DATVITD, DATBMP #### [facility] [address] [place] [address] Dr. Virgie DeutschCreatinine [Mass/Vol]0.79 mg/dLNormal0.52-1.04The [facility] - WestComment on above:Performed By: #### DATVITD, DATBMP #### [facility] [address] [place] [address] Dr. Virgie Regalado-AF ARMENIAN>60Normal>=60[facility] HospitalComment on above:Performed By: #### HUGO DATBMP #### [facility] [address] [address] [address] Virgie Regalado-NON AF ARMENIAN>60Normal>=60[facility] HospitalComment on above:Performed By: #### HUGO DATBMP #### [facility] [address] [address] [address] Virgie DeutschGlucose [Mass/Vol]94 mg/aZYlnwtp42-363FnoFort Hamilton Hospital Comment on above:Performed By: #### HUGO DATBMP #### [facility] [address] [place] [address] Dr. Virgie DeutschHDFabiola NORMAL> or = 60 mg/dl - LOW CARDIOVASCULAR RISK <40 mg/dl - HIGH CARDIOVASCULAR RISKWilson Memorial HospitalComment on above:Performed By: #### HUGO DATBMP #### [facility] [address] [place] [address] Dr. Virgie DeutschLDL CALC NORMALSEE BELOWWilson Memorial HospitalComment on above:Result Comment: <100 mg/dl OPTIMAL 100 - 129 mg/dl NEAR OR ABOVE OPTIMAL 130 - 159 mg/dl BORDERLINE HIGH 160 - 189 mg/dl HIGH >190 mg/dl VERY HIGH Performed By: #### HUGO DATBMP #### [facility] [address] [address] [address] Virgie DeutschPotassium [Moles/Vol]4.2 mmol/LNormal3.4-5.0[facility] Comment on above:Performed By: #### HUGO DATBMP #### [facility] [address] [address] [address] Virgie DeutschSodium [Moles/Vol]141 mmol/QYbjliq173-935AyhFort Hamilton Hospital Comment on above:Performed By: #### HUGO DATBMP #### [facility] [address] [address] [address] Virgie DeutschTriglyceride [Mass/Vol]75 mg/dLNormal<=150[facility] Comment on above:Performed By: #### DATVITD, DATBMP #### [facility] [address] [address] [address] Virgie Lugo nitrogen [Mass/Vol]20.0 mg/dLCritically high7.0-18.0[facility] on above:Performed By: #### DATVITD, DATBMP #### [facility] [address] [address] [address] Virgie Lugo nitrogen/Creatinine [Mass ratio]25.3 mg/mgNoTrinity Health SystemComment on above:Performed By: #### DATVITD, DATBMP #### [facility] [address] [address] [address] Virgie DeutschVLDL CALC15.0 mg/dLNoTrinity Health SystemComment on above: Performed By: #### DATVITD, DATBMP #### [facility] [address] [address] [address] Virgie DeutschMG MAMM SCREEN 3D MEME CADon [id number] MAMM SCREEN 3D MEME CAD Patient: KIMBERLY RUEDA Exam Date: 01/08/2022 : 1950 Gender:F Ordering : DR KRISHNA CALVIN D.O. Admission #: [id number] Family : Order #: [id number] CLICK HERE TO VIEW EXAM RADIOLOGY REPORT PROCEDURE: MAMMOGRAM SCREENING 3D BILATERAL CAD COMPARISON: MG MAMM MEME SCRN W CAD DIG, 08/14/2015. MG MAMM SCREEN MEME W CAD, 05/01/2018. INDICATIONS: Screening mammography Calculator Name NCI Breast Cancer Risk Assessment Tool 5 Year Breast Cancer Risk 1.50% Lifetime Breast Cancer Risk 4.30% Personal Breast Cancer No Personal Ovarian Cancer No Treatments None Family Cancers Father with pancreatic cancer at age 70. LOCATION: [facility] BREAST COMPOSITION: Scattered areas fibroglandular density. FINDINGS: DIAGNOSTIC CATEGORY 1--NEGATIVE. NO CHANGE FROM COMPARISON ASSESSMENT. Scattered benign-appearing calcifications are present. Scattered benign-appearing lymph nodes are present. RIGHT BREAST: No significant suspicious finding. LEFT BREAST: No significant suspicious finding. RECOMMENDATIONS: ROUTINE MAMMOGRAM AND CLINICAL EVALUATION IN 12 MONTHS. PLEASE NOTE: A NORMAL MAMMOGRAM DOES NOT EXCLUDE THE POSSIBILITY OF BREAST CANCER. A CLINICALLY SUSPICIOUS PALPABLE LUMP SHOULD BE BIOPSIED. Dictated by: Gloria Dooley MD on 01/08/2022 at 10:59 Approved by: Gloria Dooley MD on 01/08/2022 at 11:00Wilson Memorial HospitalXR KUB 1 VIEWon [id number] KUB 1 VIEWEXAMINATION: XR KUB 1 VIEW HISTORY: Ureteric stone ; follow-up kidney stones COMPARISON: No relevant comparison available. FINDINGS: KIDNEY/URETER - RIGHT: No visible renal or ureteral calcifications. KIDNEY/URETER - LEFT: No visible renal or ureteral calcifications. PELVIS: Central pelvic calcifications are likely within the uterine leiomyoma. Lower left pelvic calcification favors a phlebolith, but could represent a distal ureteral stone. BOWEL: No abnormal dilation or deviation. BONES: No acute abnormality. OTHER: Negative. No abnormal gaseous collections. IMPRESSION: 1. No convincing urinary tract calculi. No comparison studies. Electronically authenticated by: BRADLY CHRISTOPHER Date: 2022-01-08 10:40[facility] Vital Signs Date TimeVital SignValuePerforming RratvrnbnIzipuuha19-98-9810 09:38-0400Body uoqota585.48 cmBenjamin Ball DO Work Phone: [facility]08-08-2025 09:38-0400 Body mass index (BMI) [Ratio]28.7 kg/q3Jtwxjjpp Ball DO Work Phone: [facility]08-08-2025 09:38-0400 Body .21 kgBenjamin Ball DO Work Phone: [facility]08-08-2025 09:38-0400 Diastolic blood gnmvqjym78 mm[Hg]Krishna Ball DO Work Phone: [facility]08-08-2025 09:38-0400 Heart rate73 /minBenjamin Ball DO Work Phone: [phone])[address]08-08-2025 09:38-0400 Respiratory rate12 /minBenjamin Ball DO Work Phone: [phone])[address]08-08-2025 09:38-0400 Systolic blood vwhuqkuu039 mm[Hg]Krishna Ball DO Work Phone: [phone])[address]07-16-2024 10:06-0400 Diastolic blood pjdjxdhe59 mm[Hg]DO Krishna Ball Work Phone: [phone])[address]07-16-2024 10:06-0400 Heart rate70 /minDO Krishna Ball Work Phone: 1([phone])162-[address] [place], [place] 7657707-16-2024 10:06-0400 Respiratory rate16 /minDO Krishna Ball Work Phone: [phone])[address]07-16-2024 10:06-0400 SaO2% (BldA) [Mass fraction]93 %DO Krishna Ball Work Phone: [phone])[address]07-16-2024 10:06-0400 Systolic blood yfcsguez831 mm[Hg]DO Krishna Ball Work Phone: [phone])[address]07-16-2024 07:35-0400 Body frcxyn114.48 cmDO Krishna Ball Work Phone: [phone])[address]07-16-2024 07:35-0400 Body .03 kgDO Krishna Ball Work Phone: [phone])907-[address] [place], [place] [address]657711-20-2023 13:45-0500 Body pktjul151.48 cmBenjamin Ball Other [employer] Other 11-20-2023 13:45-0500Body mass index (BMI) [Ratio] 27.65 kg/y0Dgkrdxzz Ball Other [facility] [employer] Other 11-20-2023 13:45-0500Body ocvaou31.58 kgBenjamin Ball Other [employer] Other 11-20-2023 13:45-0500Diastolic blood tfezapvv48 mm[Hg] Krishna Calvin Other [employer] Other 11-20-2023 13:45-0500Respiratory rate12 /minBenalyse Calvin Other [facility] [employer] Other 11-20-2023 13:45-0500Systolic blood vaaipdep595 mm[Hg] Krishna Calvin Other [employer] Other Encounters Encounter DateEncounter TypeCare ProviderFacilityStart: 05-10-2025 End: 11-20-6313opijyzlxraCbpxffqh Ball DO Work Phone: [facility] Work Phone: Start: 05-10-2025 End: 19-04-4769Tzrdnxx encounter procedureBengorantiffanie Calvin DO-[facility] Work Phone: Start: 38-07-7913Pwj-patient / Non-visitDO Krishna Calvin Work Phone: [facility] Work Phone: Start: 04-17-2024 End: 30-01-6398Zyfqkojns to same day surgery centerDO Krishna Calvin Work Phone: [facility] Work Phone: Start: 04-17-2024 End: 25-93-4125jpgyonwncuLG Krishna Calvin Work Phone: [facility] Work Phone: Start: 08-22-2023 End: 37-83-9107qlzuesoopaYjayvqea Ball Other [facility] [employer] Other Start: 98-48-2960Dgohxbk encounter procedureBengoranmin BallFPG [facility] Medical ClinicStart: 07-06-2022 End: 03-61-2287selmcbcqnbEI KRISHNA CALVINFacility:M9Xhuzi: 07-01-2022 End: 09-10-7528agsjdacdjdAA KRISHNA CALVINFacility:O5Cvrzv: 01-08-2022 End: 62-23-3152ezqemlhzbvOB KRISHNA CALVINFacility:H1 Procedures DateProcedureProcedure DetailPerforming ClinicianStart: 81-19-5217Xrvmeiejm colonoscopyDO Krishna Calvin Work Phone: Plan of Treatment DateCare ActivityDetailAuthorStart: 88-95-8923FhxpgsrxiG[facility] Hospital Patient EducationDiverticulosis (DC) Know your [facility] Work Phone: Immunizations Immunization DateImmunizationNotesCare VaovewgjRdacbnqa05-54-1320ahzeipknw virus vaccine, split virus (incl. purified surface antigen)Krishna Calvin Other [employer] Other [id number] virus vaccine, unspecified formulationDO Krishna Calvin Work Phone: [facility]10-18-2021influenza virus vaccine, split virus (incl. purified surface antigen)Krishna Calvin Other [employer] Other [id number] virus vaccine, unspecified formulationDO Krishna Calvin Work Phone: [facility]05-04-2021COVID-19 Vaccine Pfizer - Documentation Purposes OnlyBejstiffanie Calvin Other [facility]04-13-2021COVID-19 Vaccine Pfizer - Documentation Purposes OnlyQuiquetiffanie Calvin Other [facility]10-27-2020influenza virus vaccine, split virus (incl. purified surface antigen)Krishna Calvin Other [employer] Other [id number] virus vaccine, unspecified formulationDO Krishna Calvin Work Phone: [facility]10-23-2018influenza virus vaccine, split virus (incl. purified surface antigen)Krishna Calvin Other [place] [employer] Other [id number] virus vaccine, unspecified formulationDO Krishna Calvin Work Phone: [facility]07-06-2018 pneumococcal conjugate vaccine, 13 valentBenalyse Calvin Other [facility] Payers DatePayer CategoryPayerPolicy [id number]-[id number] [id number] [id number] Social History DateTypeDetailFacilitySex Assigned At BirthNosaint alexius hospital [employer] Other Start: 54-55-0652Yitkquj smoking status NHISEx-smoker (finding)[facility] Systemtart: 57-30-5033Pzj Assigned At FemaleUniversity Hospitals Health SystemexFemale (finding)[facility] Goals DatePatient GoalDesired Activity/State Procedure note 04-17-2024 Note Date & UmrrOiraUyoleksq98-97-5049 Procedure noteGlenbeigh Hospital Evaluation note 08-22-2023 Note Date & LmgmChltWwgotnqi71-53-5229 Evaluation note* Encounter Date Diagnosis Assessment Notes Treatment Notes Treatment Clinical Notes Aug, Medicare annual wellness visit, subsequent (ICD-10 - Z00.00) Personalized health advice was given to the beneficiary including a written plan for screenings discussed and provided. Advanced care planning reviewed and/or information given as requested. Additional counseling was provided here today in regards to, [ ]. The above visit was performed by [ ], under direct supervision of [ ]. Document reviewed and amended by provider signed below. Aug,cute diverticulitis (ICD-10 - K57.92)Finish antibiotics, call if symptoms recur. Increase dietary fiber Aug,Elevated BP without diagnosis of hypertension (ICD-10 - R03.0)Low salt diet, exercise and weight loss. Patient is instructed on home BP measurements: - rest for 5 minutes w/o talking- positioned w/ feeton floor and arm supported- average best 2/3 readings w/ goal < 135/85 _update office w/ home readings Aug,Overweight (ICD-10 - E66.3)This patient has been instructed on a low-fat, high-fiber diet. They are instructed to reduce calories, portion sizes and snacks. It is recommended that they exercise for 30 minutes, 3-5 times weekly. Aug,Hx of renal calculi (ICD-10 - Z87.442)Push fluids Aug,Screening mammogram for breast cancer (ICD-10 - Z12.31)Instructed patient on monthly SBE and yearly mammograms. Aug,Screening for colon cancer (ICD-10 - Z12.11)Due to have colonoscopy. Must wait for diverticulitis to calm down, which will place her in [place] She was instructed to call upon return to [employer] Other Evaluation note Note Date & TypeNoteFacilityEvaluation noteNo assessment information available [facility] Work Phone: Evaluation note Note Date & TypeNoteFacilityEvaluation note* Diagnosis Onset Date Resolution Status Admit Date Hypercholesterolemia acuteAugust 2024 9:16amNephrolithiasisacuteAugust 2024 9:16am OsteopeniaacuteAugust 2024 9:16amScreening mammogram for breast canceracute May 10, 2025 9:16amMedicare annual wellness visit, initialnoneactiveAugust 2024 9:16am [facility] Work Phone: History and physical note Note Date & TypeNoteFacilityHistory and physical note Author Josselin Aguilar [facility] April 17, 2024 9:16amNote Date/TimeJuly 2023 9:16[place] [address] Gastroenterology H&P Signed Patient: Kimberly Rueda MR#: [id number] : 1950 Acct:[id number] Age/Sex: 74 / F Adm Date: 4 Loc: Room: Type: [facility] Attending Dr: Josselin Aguilar MD Copies to: DO Josselin Lara MD~ Date of Service: 04/17/2024 HISTORY & PHYSICAL: Patient's history with special attention to the cardiovascular, pulmonary systems and the current problem was reviewed with the patient immediately prior to the procedure. Present medications and doses reviewed in the EMR. Allergies and pertinent laboratory tests were also re viewedat this time in the EMR. The physical examination, as below, was then performed. Indication, assessment and HPI: 74-year-old female here for screening colonoscopy Family history of GI malignancy? No PHYSICAL EXAMINATION General appearance: NAD Skin: No jaundice Head: NC/AT Eyes: Anicteric Neck: Supple Lungs: Normal respiratory effort, no use of accessory muscles Abdomen: nondistended Neuro: Ox3. REVIEW OF SYSTEMS Constitutional: Denies malaise, fevers Cardiovascular: Denies chest pain, palpitations Respiratory: Denies shortness of breath, wheezing Gastrointestinal: As per HPI Genitourinary: Denies dysuria, polyuria Musculoskeletal: Denies joint swelling, joint stiffness Neurological: Denies confusion, numbness, tingling Endocrine: Denies fatigue Written informed consent obtained from the patient. Risks (including but not limited to perforation, infection, bloating, bleeding, need for emergent surgeryand loss of life), benefits and alternatives explained and questions answered. The patient verbalized understanding. Based on history patient is an appropriate candidate for the procedure. Josselin Aguilar M.D. Documented By: Josselin Aguilar MD 04/17/24914 Signed By: <Electronically signed by Josselin Aguilar MD> 04/17/24915 [facility] Work Phone: History general Narrative - Reported Note Date & TypeNoteFacilityHistory general Narrative - Reported* Type Description Date Medical History Osteopenia Medical HistoryRetinal ischemiaMedical HistoryLeft upper quadrant abdominal pain Medical HistoryUreteral stoneMedical HistoryPure hypercholesterolemiaSurgical TxnlgixDOGKPXCEXBR2809Oodifrruadzvshv HistorySEE SURGICAL HX [employer] Other Hospital Discharge instructions Note Date & TypeNoteFacilityHospital Discharge instructions Additional Instructions DISCHARGE INSTRUCTIONS FOR COLONOSCOPY WHAT TO EXPECT: - You may feel full, gassy or cramping after your procedure. In some cases, this may be from a few hours to a day. Walking may help relieve the discomfort. - You should begin to recover from anesthesia within 1 hour of the procedure, however may feel groggy for the next 24 hours. DO's AND DON'Ts: - Call your doctor right away if you have a hard abdomen, severe pain, are passing lots of bright red blood or clots. - Call your doctor if you develop any rashes, hives or difficulty breathing. - Let your doctor know if you have not had a bowel movement by 3 days after your procedure. - If you take 81 mg aspirin for your heart it is safe to resume this medication. - If you take other blood thinner medications your doctor will instruct you when these can safely be resumed. - Do NOT drive for 24 hours. - Do NOT operate machinery such as power tools, lawn mowers, snow blowers, sewing machines, etc. for 24 hours. - Avoid alcoholic beverages and drugs for allergies, nerves, or sleep. - Do NOT stay alone. Do NOT leave your child unattended. - Do NOT make important personal or business decisions or sign any legal documents. - Eat solid foods and drink liquids in smaller amounts than usual until normal appetite returns. If you should experience an upset stomach, liquids high in sugar content (soda, Maurizio-Aid, non-acid juices) are recommended. - You can resume normal activities tomorrow. FOLLOW UP & RECOMMENDATIONS: -Notify the doctor if you have any problems. -Follow up with PCP. -Office number [phone]. [facility] Work Phone: Reason for referral (narrative) Note Date & TypeNoteFacilityReason for referral (narrative)No reason for referral information availableCleveland Clinic Marymount Hospital Work Phone: Summary Purpose Family History Relationship Condition Age at Onset Recorded Date/T randy mother Diabetes mellitus Unknown fatherMalignant neoplasm of pancreasUnknown Advance Directives Advance Directive Response Recorded Date/ Time Advance Directives No February 14 10:24am Chief Complaint and Reason for Visit Chief Complaint Screening Screening Chief Complaint Admit Date Wellness May 10, 2025 9:1 6am Reason for Visit Admit Date Hypercholesterolemia May 10, 2025 9: 16am Nephrolithiasis May 10, 2025 9:1 6am Osteopenia May 10, 2025 9:1 6am Screening mammogram for breast cancer [facility] 2024 9:16am Medicare annual wellness visit, initial May 10, 2025 9:16am Additional Source Comments INFORMATION SOURCE (unrecogn ized section and content) DATE CREATED AUTHOR 07/10/2022 [facility] DATE CREATED AUTHOR AUTHOR'S FLORENTIN ATION 04/20/2024 [facility] REASON FOR VISIT (unrecogniz ed section and content) [facility] Care Teams (unrecognized sec tion and content) Team Status: Active Member Role Status Dates Krishna Calvin DO Primary Care Provider Active Team Status: Inactive Member Role Status Dates Krishna Calvin DO Primary Care Provider Active Start: April 17, 2024 End: April 17, 2024Laly Johnson ProviderActiveStart: April 17, 2024 End: April 17, 2024 Team Status: Active Member Role Status Dates Krishna Calvin DO Primary Care Provider Active Start: April 17, 2024 Laly Johnson Provider, Other ProviderActiveStart: April 17, 2024 Team Status: Inactive Member Role Status Dates Krishna Calvin DO Primary Care Provider Active Start: May 10, 2025 End: May 10Rajni Singer ProviderActiveStart: May 10, 2025 End: May 10, 2025 Goals (unrecognized section and content) Goals may be documented in a n alternate section FOR RECORDS PERTAINING TO PATIENTS WHO ARE OR HAVE BEEN ENROLLED IN A CHEMICAL DEPENDENCY/SUBSTANCEABUSE PROGRAM, SOME INFORMATION MAY BE OMITTED. This clinical summary was aggregated from multiple sources. Caution should be exercised in using it in the provision of clinical care. This summary normalizes information from multiple sources, and as a consequence, information in this document may materially change the coding, format and clinical context of patient data. In addition, data may be omitted in some cases. CLINICAL DECISIONS SHOULD BE BASED ON THE PRIMARY CLINICAL RECORDS. [facility]. provides no warranty or guarantee of the accuracy or completeness of information in this document.
--- OUTSIDE RECORDS SUMMARY | 2025-08-09 07:20 | XMS_ITS | Clinical Summary ---
Author Organization [facility] Address [address] [place] [address] Care Team Providers Care Senior Java Web Developer Name Role Phone Unavailable Primary Care Provider Unavailabl e Social History Tobacco UseTypesPacks/DayYears UsedDateSmoking Tobacco: Never Assessed CommentsUnknownSex and Gender InformationValueDate RecordedSex Assigned at Not on fileLegal OazUvhxmw53/03/2013 2:08 PM ESTGender IdentityNot on fileSexual OrientationNot on file Plan of Treatment Health MaintenanceDue DateLast DoneCommentsDEXA SCAN MCENGJYHJC1950 HEPATITIS C VIRUS IVHLABZKY42/12/8236LHYCRJO1950TDAP (ADULT)1970 CERVICAL CANCER SCREENING HMPSUQAXBM91/12/1972LIPID JHUDYEOEO52/12/1991MAMMOGRAM SCREENING ZDDTEIOIBO43/12/1991COLORECTAL CANCER SCREENING XZFDMLPPPP33/12/1996 PNEUMOCOCCAL VACCINE SERIES (1 of 1 - PCV)2001ZOSTER (SHINGLES) VACCINE (1 of 2)2001COVID-19 VACCINE ( - 2024- season)2025INFLUENZA VACCINE (#1)2025RSV VACCINE (1 - 1-dose 75+ series)2026HEP B VACCINEAged Out No longer eligible based on patient's age to complete this topic
--- OUTSIDE RECORDS SUMMARY | 2025-08-09 07:20 | XMS_ITS | Clinical Summary ---
Author Organization [facility] Address [address] [place] [address] Care Team Providers Care Customer Pricing Manager Name Role Phone Unavailable Primary Care Provider Unavailabl e Allergies No known active allergies Medications MedicationSigDispense QuantityRefillsLast FilledStart DateEnd DateStatus omega-3 fatty acids/vitamin e(FISH OIL 1,000 MG CAP) Take one(1) tablet daily.ctive ascorbic acid(VITAMIN C 500 MG TAB) Take one(1) tablet daily.ctive MULTIVITAMIN TAB Take one(1) tablet daily.ctive CALCIUM CARB-MAGNESIUM OXIDE-VIT D3 400 MG-167 MG-133 UNIT TAB Take one(1) tablet daily.ctive aspirin(ECOTRIN LOW STRENGTH 81 MG TAB) Take one(1) tablet daily.ctive Active Problems ProblemNoted DateDiagnosed DateAbnormality of gait01/11/2011 Social History Tobacco UseTypesPacks/DayYears UsedDateSmoking Tobacco: Never Assessed CommentsNoSex and Gender InformationValueDate RecordedSex Assigned at BirthNot on fileLegal PrnNbbpjq70/02/2012 8:26 AM ESTGender IdentityNot on fileSexual OrientationNot on file Last Filed Vital Signs Vital SignReadingTime TakenCommentsBlood Mvntgpgn746/9909/18/2009 12:59 PM EST Ogjys711009/18/2009 12:59 PM ESTTemperature--Respiratory Olxj992411/19/2008 12:59 PM ESTOxygen Saturation--Inhaled Oxygen Concentration--Weight--Height--Body Mass Index-- Plan of Treatment Health MaintenanceDue DateLast DoneCommentsAnxiety Rauhwahvj74/12/1969Depression Gliwovota54/12/1969Hepatitis C Xrcdmvcfh25/12/1969DTaP,Tdap,Td Vaccine (1 - Tdap)1970Mammogram Wvpygrjkh76/12/1991CT Fohzhcedwuwa38/12/1996Cologuard (FIT-DNA)03/14/19962444Kxinoplqonl46/12/1996Colorectal Cancer Dbteonafz58/12/1996 Diabetes Xbhwsewbm60/12/1996Fecal Occult Blood1996Lipid Screening 03/14/19965437Bwlvodiicmqvk06/12/1996Pneumococcal Vaccine: 50+ (1 of 1 - PCV) 2001Shingrix Vaccine (1 of 2)2001Bone Density Ysyeechkk13/12/2016 Advance Directive Yamqxldkpg01/01/2025ovid-19 Vaccine (1 - 2024-26 season) 2025Influenza Vaccine (#1)2025RSV Vaccine (1 - 1-dose 75+ series) 2026 Insurance
[2025-08-09 08:07] VITALS: BP 140/80
== END 2025-08-09 08:08 | disposition home or self-care (01) ==
PROVIDERS: Emergency Provider Emergency Medicine; Family Provider Optometrist; PCP Internal Medicine
DX: K57.32 Diverticulitis of large intestine without perforation or abscess without bleeding (principal)
CPT/HCPCS: 36415; 74177; 80053; 81001; 85025; 99285; Q9967